=== PATIENT | female | born 1950 | race Caucasian/White ===

== ENCOUNTER 2021-06-25 16:40 | Inpatient (IN) | payer MEDICARE ==
[~2021-06-25] VITALS: Ht 162.6 cm; Wt 67.1 kg
[~2021-06-25 16:40] MED LIST: ALDACTONE25 MG PO; ANTIVERT 25MG T25 MG PO; ASPIR 8181 MG PO; AUGMENTIN 875-1 EACH PO; COREG 25MG TAB25 MG PO; COZAAR25 MG PO; LASIX40 MG PO; LIPITOR TAB 2020 MG PO; NITROSTAT0.4 MG SL; TOPROL XL25 MG PO; ZOFRAN ODT 4 MG4 MG PO
[2021-06-25 16:51] LABS: HEMOGLOBIN 10.1 gm/dl (12.3-15.3); RED BLOOD COUNT 4.04 M/UL (4.00-5.10); WHITE BLOOD COUNT 13.5 K/UL (4.5-11.0)
[2021-06-25 17:33] LABS: BUN/CREATININE RATIO 22 (0-10)
[2021-06-26 01:54] LABS: HEMOGLOBIN 10.1 gm/dl (12.3-15.3); RED BLOOD COUNT 4.11 M/UL (4.00-5.10); WHITE BLOOD COUNT 11.2 K/UL (4.5-11.0)
[2021-06-26 02:26] LABS: BUN/CREATININE RATIO 21 (0-10)
[2021-06-26] MEDS ORDERED: CARVEDILOL25 MG PO (11:43)
[2021-06-26] MEDS ORDERED: FUROSEMIDE40 MG PO (11:43)
[2021-06-26] MEDS ORDERED: WARFARIN SODIUM3 MG PO (11:43)
[2021-06-26] MEDS ORDERED: ENTRESTO 24 MG1 EACH PO (11:44)
[2021-06-27 05:11] LABS: HEMOGLOBIN 10.1 gm/dl (12.3-15.3); RED BLOOD COUNT 3.98 M/UL (4.00-5.10); WHITE BLOOD COUNT 13.8 K/UL (4.5-11.0)
[2021-06-28] MEDS ORDERED: LOPRESSOR 50 MG50 MG PO (10:48)
[2021-06-28] MEDS ORDERED: PROTONIX40 MG PO (10:48)
== END 2021-06-28 11:50 | disposition home or self-care (01) | DRG 308 ==
LOC: ER1 16:40 → CDU 18:43 → PROG CARE 18:43
PROVIDERS: Emergency Medicine; ADMIT Internal Medicine
DX: I48.0 Paroxysmal atrial fibrillation (principal); J18.9 Pneumonia, unspecified organism; I50.23 Acute on chronic systolic (congestive) heart failure; N17.9 Acute kidney failure, unspecified; Z20.822 Contact with and (suspected) exposure to COVID-19; E78.5 Hyperlipidemia, unspecified; I08.3 Combined rheumatic disorders of mitral, aortic and tricuspid valves; I25.10 Atherosclerotic heart disease of native coronary artery without angina pectoris; I50.810 Right heart failure, unspecified; I42.0 Dilated cardiomyopathy; E86.0 Dehydration; T50.2X5A Adverse effect of carbonic-anhydrase inhibitors, benzothiadiazides and other diuretics, initial encounter; K80.20 Calculus of gallbladder without cholecystitis without obstruction; I11.0 Hypertensive heart disease with heart failure; I27.20 Pulmonary hypertension, unspecified; Z95.2 Presence of prosthetic heart valve; Z79.01 Long term (current) use of anticoagulants; Z98.890 Other specified postprocedural states; Z82.49 Family history of ischemic heart disease and other diseases of the circulatory system
CPT/HCPCS: ECHO; 36415; 71045; 71250; 76705; 80048; 80053; 81001; 82436; 82550; 82553; 82570; 82728; 83540; 83550; 83690; 83735; 83880; 84100; 84133; 84156; 84300; 84439; 84443; 84484; 85025; 85610; 86140; 87086; 93306; 96374; 96375; 99285; C9113; J0696; J1650; J2405; J2550; J7030; U0002